=== PATIENT | female | born 1990 | race Two or more races ===

== ENCOUNTER 2025-01-04 22:10 | Inpatient (IN) | payer OTHER ==
[2025-01-04] MEDS: DEXTROSE 5%-LACTATED RINGERS 1,000 ML IV SCH (23:15)
[2025-01-04 23:39] LABS: BASO % 0.6 % (0-2.0); EOS % 3.1 % (0-4.5); HEMATOCRIT 38.8 % (32.4-45.2); HEMOGLOBIN 12.7 GM/dL (10.7-15.3); LYMPH % 27.5 % (8-40); MCH 25.5 pg (25.7-33.7); MCHC 32.8 g/dl (32.0-36.0); MEAN CELL VOLUME 77.7 fl (80-96); MEAN PLT VOLUME 7.6 fl (7.5-11.1); MONO % 5.1 % (3.8-10.2); NEUT % 63.7 % (42.8-82.8); PLATELET COUNT 309 10^3/uL (134-434); RDW 14.9 % (11.6-15.6); WHITE BLOOD COUNT 7.6 K/mm3 (4.0-10.0)
[2025-01-04 23:48] LABS: INR 1.01 (0.83-1.09); PROTHROMBIN TIME (PATIENT) 11.1 SEC (9.7-13.0)
[2025-01-04 23:50] LABS: ACTIVATED PTT 29.6 SECONDS (25.2-36.5)
[2025-01-04] MEDS: MISOPROSTOL 100 MCG TABLET PV SCH (23:50)
[2025-01-05] VITALS: BMI 33.6
[2025-01-05 00:16] LABS: POTASSIUM 3.5 mmol/L (3.5-5.1)
[2025-01-05 00:18] LABS: BLOOD UREA NITROGEN 9.6 mg/dL (7-18)
[2025-01-05 00:21] LABS: CREATININE 0.7 mg/dL (0.55-1.3)
[2025-01-05] MEDS ORDERED: PENICILLIN G POTASSIUM 5,000,000 UNIT/250 ML BAG IVPB ONE (04:13)
[2025-01-05] MEDS: PENICILLIN G POTASSIUM 20,000,000 (20Mm) UNITS VIAL IVPB ONE (04:15)
[2025-01-05] MEDS ORDERED: LIDOCAINE HCL 1% PRESERVATIVE FREE - 30ML VIAL ONE (04:24)
[2025-01-05] MEDS ORDERED: OXYTOCIN 20 UNITS in 0.9% NS 20 UNIT/1,000 ML INFUS.BAG IV ONE (04:24)
[2025-01-05] MEDS ORDERED: OXYTOCIN 10 UNITS/ML VIAL ONE (04:44)
[2025-01-05] MEDS: OXYTOCIN 10 UNITS/ML VIAL IM ONE (04:47)
[2025-01-05] MEDS: OXYTOCIN 20 UNITS in 0.9% NS 20 UNIT/1,000 ML INFUS.BAG IV SCH (04:50)
[2025-01-05] MEDS ORDERED: ACETAMINOPHEN 325 MG TABLET (FP) PO PRN (05:10)
[2025-01-05] MEDS ORDERED: BENZOCAINE 28 GM HEMORRHOIDAL OINTMENT TP PRN (05:10)
[2025-01-05] MEDS ORDERED: WITCH HAZEL 50% (TUCKS) 40 PAD/JAR PAD TP PRN (05:10)
[2025-01-05 05:55] LABS: CORD BASE EXCESS -4.3 mmol/L (0-2); CORD HCO3 22.2 mmHg (20-29); CORD PCO2 45.7 mmHg (30-78); CORD pH 7.304 (7.14-7.44)
[2025-01-05 05:57] LABS: CORD BASE EXCESS -2.8 mmol/L (0-2); CORD HCO3 23.6 mmHg (20-29); CORD PCO2 46.5 mmHg (30-78); CORD pH 7.323 (7.14-7.44)
[2025-01-05] MEDS ORDERED: IBUPROFEN 600 MG TABLET (FP) PO ONE (08:11)
[2025-01-05] MEDS: IBUPROFEN 600 MG TABLET (FP) PO PRN (08:20)
[2025-01-06 05:56] VITALS: RESP 18
[2025-01-06 08:28] LABS: HEMATOCRIT 32.4 % (32.4-45.2); HEMOGLOBIN 10.6 GM/dL (10.7-15.3); MCH 25.3 pg (25.7-33.7); MCHC 32.8 g/dl (32.0-36.0); MEAN CELL VOLUME 77.3 fl (80-96); MEAN PLT VOLUME 7.8 fl (7.5-11.1); PLATELET COUNT 244 10^3/uL (134-434); RBC 4.19 M/mm3 (3.60-5.2); WHITE BLOOD COUNT 10.2 K/mm3 (4.0-10.0)
[2025-01-06 11:13] LABS: ANISOCYTOSIS 1+; MACROCYTOSIS 0; ROULEAU 1+
[2025-01-06 22:34] VITALS: BP 94/57; PULSE 81; TEMP 98.7
[2025-01-13 08:52] LABS: POC NITRAZINE POS
== END 2025-01-07 14:06 | disposition home or self-care (01) | DRG 560 ==
LOC: JLDR 22:10 → J3W 01-05 09:24
PROVIDERS: ADMIT Obstetrics & Gynecology Maternal & Fetal Medicine; ATTEND Obstetrics & Gynecology Maternal & Fetal Medicine
PROC: 10E0XZZ Delivery of Products of Conception, External Approach (ICD-10-PCS; principal; 2025-01-05)
DX: O80 Encounter for full-term uncomplicated delivery (principal); Z3A.39 39 weeks gestation of pregnancy; Z37.0 Single live birth
CPT/HCPCS: 36415; 36600; 59409; 80048; 82803; 83986-QW; 85025; 85610; 85730; 86780; 86850; 86900; 86901; 88307-TC